=== PATIENT | male | born 2000 | race Caucasian/White ===

== ENCOUNTER 2018-07-28 09:27 | Emergency (ER) | payer SELFPAY ==
[~2018-07-28] VITALS: Ht 180.3 cm; Wt 85.3 kg
[2018-07-28 09:37] VITALS: BP 125/78; Ht 180.3 cm; Wt 85.3 kg
== END 2018-07-28 11:00 | disposition home or self-care (01) ==
LOC: ED 09:27
DX: R21 Rash and other nonspecific skin eruption (principal); F17.210 Nicotine dependence, cigarettes, uncomplicated
CPT/HCPCS: 87491; 87591; J0696